=== PATIENT | female | born 1985 | race Caucasian/White ===

== ENCOUNTER 2018-03-06 21:55 | Emergency (ER) | payer BC, OTHER ==
[~2018-03-06] VITALS: Ht 165.1 cm; Wt 117.9 kg
[2018-03-06] MEDS ORDERED: AMOX-358 PO (22:18)
--- NOTE | 2018-03-06 22:18 | ED EENT ---
History of Present Illness General Chief Complaint: Ear Problems Stated Complaint: EAR PAIN;BODY ACHES Nursing Triage Note: right ear pain, headache, body aches that began at 0630. Afebrile. Source: patient, other Exam Limitations: no limitations History of Present Illness Date Seen by Provider: Mar 06, 2018 Time Seen by Provider: 22:06 Initial Comments The patient presents to the ER by private conveyance with a chief complaint that the last day or 2 she started having pain on the right ear and right side of her face and a nodule under her right jaw on the neck. She's not had any drainage from her ear or nose or fevers or nausea or vomiting, diarrhea chest pain or shortness of breath. Allergies and Home Medications Patient Home Medication List Home Medication List Reviewed: Yes Review of Systems Constitutional: No chills, No fever; malaise, other (body aches) Eyes: Denies Blindness, Denies Blurred Vision, Denies Drainage Ears: Denies Dizziness; Pain (right); Denies Tinnitus, Denies Bloody Discharge , Denies Clear Discharge, Denies Purulent Discharge, Denies Serosanguinous Discharge, Denies Previous Injury Nose: denies clots, denies congestion, denies epistaxis Mouth: denies clots, denies loose teeth, denies pain; other (pulse upper's but no lowers) Throat: denies pain, denies swelling, denies discharge, denies neck stiffness, denies hoarse, denies aphonia, denies muffled Respiratory: No cough, No short of breath Cardiovascular: No chest pain, No edema Gastrointestinal: No abdominal pain, No constipation, No nausea Past Rumcwhg-Uujula-Ejtjwx Hx Patient Social History Alcohol Use: Denies Use Recreational Drug Use: No Smoking Status: Current Everyday Smoker Type Used: Cigarettes 2nd Hand Smoke Exposure: No Recent Foreign Travel: No Contact w/Someone Who Travel: No Recent Infectious Disease Expo: No Recent Hopitalizations: No Physical Abuse: No Sexual Abuse: No Mistreated: No Fear: No Immunizations Up To Date Tetanus Booster (TDap): Less than 5yrs Seasonal Allergies Seasonal Allergies: No Past Medical History Surgeries: No Respiratory: No Cardiac: No Neurological: Yes Neuropathy Last Menstrual Period: Mar 02, 2018 Genitourinary: No Gastrointestinal: No Musculoskeletal: Yes Chronic Back Pain Endocrine: No HEENT: No Cancer: No Psychosocial: Yes Depression Nursing Suicide Risk Score: 1 Integumentary: No Physical Exam Vital Signs Vital Signs - First Documented 03/06/18 22:00 Temp 97.7 Pulse 93 Resp 18 B/P (MAP) 135/95 (108) Pulse Ox 100 O2 Delivery Room Air General Appearance: WD/WN, no apparent distress Eyes: bilateral eye normal inspection, bilateral eye PERRL, bilateral eye EOMI Ears: right ear tenderness, right ear TM dull, right ear other (mucoid effusion ); left ear TM normal; bilateral ear auricle normal, bilateral ear canal normal Nose: normal inspection, discharge Mouth/Throat: normal mouth inspection, pharynx normal Neck: lymphadenopathy (R) (1 cm tender, rubbery, mobile, nodule consistent with lymph node in the anterior cervical chain and other shotty lymphadenopathy noted.) Cardiovascular: normal peripheral pulses, regular rate, rhythm Respiratory: no respiratory distress, no accessory muscle use Progress/Results/Core Measures Vital Signs/I&O 03/06/18 22:00 Temp 97.7 Pulse 93 Resp 18 B/P (MAP) 135/95 (108) Pulse Ox 100 O2 Delivery Room Air Blood Pressure Mean: 108 Departure Impression Primary Impression: Otitis media Qualified Codes: H65.01 - Acute serous otitis media, right ear Disposition: HOME, SELF-CARE Condition: Stable Departure-Patient Inst. Decision time for Depature: 22:16 Referrals: NO,LOCAL PHYSICIAN (PCP) Primary Care Physician Patient Instructions: Ear Infections (Otitis Media) (DC) Add. Discharge Instructions: Your infection does not appear to be bacterial at this time. burning supervisor fluticasone /Flonase at the pharmacy and apply 1 spray to each nostril twice a day for the next 2 weeks. Should see some improvement over the next 3 or 4 days. However if it gets worse or you develop fevers then you should go to the pharmacy and berry picker the antibiotics and take one tablet twice a day for a week. Drink plenty of fluids and use 1000 mg of Tylenol every 8 hours and/or 800 mg of ibuprofen every 8 hours as needed for pain. You can also use heating pads on the neck for the aches as well as a humidifier or vapor rubs such as Vicks or Mentholatum. All discharge instructions reviewed with patient and/or family. Voiced understanding. Scripts Amoxicillin/Potassium Clav (Augmentin 875-125 Tablet) 1 Each Tablet 1 EACH PO BID for 7 Days, #14 TAB 0 Refills Prov: BELLO FIELDS 03/06/18 BELLO FIELDS Mar 06, 2018 22:18
[2018-03-06 22:28] VITALS: BP 119/69
[2018-03-10] MEDS ORDERED: NF-CIPDEC (21:39)
[2018-03-10] MEDS ORDERED: AMOX1TAB12 (21:39)
[2018-03-10] MEDS ORDERED: METH4TAB PO (22:34)
[2018-03-10] MEDS ORDERED: CEFD300C3 PO (22:34)
== END 2018-03-06 22:28 | disposition home or self-care (01) ==
LOC: ER 21:58
DX: H66.91 Otitis media, unspecified, right ear (principal); F32.9 Major depressive disorder, single episode, unspecified; F17.210 Nicotine dependence, cigarettes, uncomplicated
CPT/HCPCS: 99282

== ENCOUNTER 2019-12-03 15:09 | Emergency (ER) | payer BC ==
[~2019-12-03] VITALS: Ht 165.1 cm; Wt 118.3 kg
[~2019-12-03 15:09] MED LIST: AMOX-358 PO; AMOX1TAB12; CEFD300C3 PO; METH4TAB PO; NF-CIPDEC
--- NOTE | 2019-12-03 15:32 | ED Lower Extremity ---
General Chief Complaint: Lower Extremity Stated Complaint: LEFT LEG PAIN Nursing Triage Note: NON INJURY LEFT LEG PAIN X2 DAYS. Nursing Sepsis Screen: No Definite Risk Source: patient Exam Limitations: no limitations History of Present Illness Date Seen by Provider: Dec 03, 2019 Time Seen by Provider: 15:28 Initial Comments Left Anterior thigh pain 2 days no injury. He is no chills she is on gabapentin for sciatica. States they're not helping. Onset: just prior to arrival Severity: moderate Pain/Injury Location: left hip, left thigh Method of Injury: unknown Modifying Factors: Worse With Movement Allergies and Home Medications Allergies Coded Allergies: No Known Drug Allergies (Unverified , 03/10/18) Patient Home Medication List Home Medication List Reviewed: Yes Review of Systems Constitutional: see HPI Respiratory: no symptoms reported Cardiovascular: no symptoms reported Genitourinary: no symptoms reported Musculoskeletal: see HPI Skin: no symptoms reported Psychiatric/Neurological: No Symptoms Reported Past Amjxuop-Dneoks-Gadqcc Hx Patient Social History Alcohol Use: Denies Use Recreational Drug Use: No Smoking Status: Current Everyday Smoker Type Used: Cigarettes 2nd Hand Smoke Exposure: No Recent Foreign Travel: No Contact w/Someone Who Travel: No Recent Infectious Disease Expo: No Recent Hopitalizations: No Immunizations Up To Date Tetanus Booster (TDap): Less than 5yrs Seasonal Allergies Seasonal Allergies: No Past Medical History Surgeries: No Respiratory: No Cardiac: No Neurological: Yes Neuropathy Genitourinary: No Gastrointestinal: No Musculoskeletal: Yes Chronic Back Pain Endocrine: No HEENT: No Cancer: No Psychosocial: Yes Depression Integumentary: No Physical Exam Vital Signs Vital Signs - First Documented 12/03/19 15:15 Temp 36.9 Pulse 100 Resp 16 B/P (MAP) 109/74 (86) Pulse Ox 98 O2 Delivery Room Air Capillary Refill : Less Than 3 Seconds Height, Weight, BMI Height: 5'5.00" Weight: 261lbs. oz. 118.917290sf; 43.00 BMI Method:Stated General Appearance: WD/WN, no apparent distress HEENT: PERRL/EOMI, normal ENT inspection Neck: non-tender, full range of motion Respiratory: no respiratory distress, no accessory muscle use Hips: bilateral hip normal inspection, bilateral hip normal range of motion; left hip pain, left hip soft tissue tenderness, left hip other (the pain is the left anterior groin down to the knee does not extend distally beyond that. +2 in strength dorsalis pedis pulse bilaterally, both lower external use one to the touch. Positive straight leg raise test on the left.) Legs: bilateral leg non-tender, bilateral leg normal inspection, bilateral leg normal range of motion Knees: bilateral knee non-tender, bilateral knee normal inspection, bilateral knee normal range of motion Ankles: bilateral ankle non-tender, bilateral ankle normal inspection, bilateral ankle normal range of motion Feet: bilateral foot non-tender, bilateral foot normal inspection, bilateral foot normal range of motion Neurologic/Psychiatric: alert, normal mood/affect Skin: normal color, warm/dry Progress/Results/Core Measures Results/Orders My Orders Orders - LIZET HAILE APRN Hip, Left, 2 Views (12/03/19 15:27) Vital Signs/I&O 12/03/19 15:15 Temp 36.9 Pulse 100 Resp 16 B/P (MAP) 109/74 (86) Pulse Ox 98 O2 Delivery Room Air Blood Pressure Mean: 86 Departure Impression Primary Impression: Sciatic leg pain Disposition: 01 HOME, SELF-CARE Condition: Stable Departure-Patient Inst. Decision time for Depature: 15:31 Referrals: NO,LOCAL PHYSICIAN (PCP/Family) Primary Care Physician Patient Instructions: Sciatica Add. Discharge Instructions: 1. Return to ER for any concerns 2. Follow-up with your doctor next week 3. All discharge instructions reviewed with patient and/or family. Voiced understanding. Scripts Methocarbamol (Robaxin-750) 750 Mg Tablet 750 MG PO Q4H PRN for PAIN-SEVERE (8-10), #20 TAB Prov: LIZET HAILE APRN 12/03/19 Naproxen (Naprosyn) 500 Mg Tablet 500 MG PO BID PRN for PAIN-MODERATE (5-7), #20 TAB 0 Refills Prov: LIZET HAILE APRN 12/03/19 Prednisone (Prednisone) 20 Mg Tab 40 MG PO DAILY, #8 TAB 0 Refills Prov: LIZET HAILE APRN 12/03/19 LIZET HAILE APRN Dec 03, 2019 15:32
[2019-12-03] MEDS ORDERED: PRD20T PO (15:34)
[2019-12-03] MEDS ORDERED: NAPR-1071 PO (15:34)
[2019-12-03] MEDS ORDERED: METH-313 PO (15:34)
--- NOTE | 2019-12-03 15:57 | Diagnostic Imaging Report ---
INDICATION: Left hip pain. AP and oblique views of the left hip are obtained. FINDINGS: No fracture or acute bony abnormality is seen. Left hip joint space appears unremarkable. There is no lytic or blastic lesion. IMPRESSION: Negative left hip. Dictated by: Dictated on workstation # [id number]
[2019-12-03 16:03] VITALS: BP 109/74
== END 2019-12-03 16:03 | disposition home or self-care (01) ==
LOC: EDUNIT# 15:09 → ER 15:10
DX: M54.32 Sciatica, left side (principal); F32.9 Major depressive disorder, single episode, unspecified; G62.9 Polyneuropathy, unspecified; F17.210 Nicotine dependence, cigarettes, uncomplicated
CPT/HCPCS: 73502; 84703

== ENCOUNTER 2021-04-19 19:48 | Emergency (ER) | payer BC ==
[~2021-04-19] VITALS: Ht 165.1 cm; Wt 127.3 kg
[~2021-04-19 19:48] MED LIST changes: +METH-313 PO; +NAPR-1071 PO; +PRD20T PO
[2021-04-19 19:56] VITALS: BP 157/90
--- NOTE | 2021-04-19 20:13 | ED Cough/URI ---
General Chief Complaint: Cough/Cold/Flu Symptoms Stated Complaint: FEVER,N/V,FATIGUE, BODY ACHES Source: patient Exam Limitations: no limitations History of Present Illness Date Seen by Provider: Apr 19, 2021 Time Seen by Provider: 20:12 Initial Comments To ER by private vehicle with reports of a headache, cough, she soiled in her pants [place] her family members grave. She is subsequently has had several episodes of diarrhea. No abdominal pain. She stopped all of her psych meds 3 weeks ago which included Seroquel, gabapentin, tramadol because she did not feel like they were helping. Timing/Duration: yesterday Severity/Quality: moderate Associated Symptoms: cough Allergies and Home Medications Allergies Coded Allergies: No Known Drug Allergies (Unverified , 03/10/18) Home Medications Methocarbamol 750 Mg Tablet, 750 MG PO Q4H PRN for PAIN-SEVERE (8-10) Prescribed by: LIZET HAILE on 12/03/19 1534 Naproxen 500 Mg Tablet, 500 MG PO BID PRN for PAIN-MODERATE (5-7) Prescribed by: LIZET HAILE on 12/03/19 1534 Prednisone 20 Mg Tab, 40 MG PO DAILY Prescribed by: LIZET HAILE on 12/03/19 1534 Patient Home Medication List Home Medication List Reviewed: Yes Review of Systems Review of Systems Constitutional: see HPI; No chills, No fever EENTM: see HPI Respiratory: no symptoms reported Cardiovascular: no symptoms reported Gastrointestinal: diarrhea Genitourinary: no symptoms reported Musculoskeletal: no symptoms reported Skin: no symptoms reported Psychiatric/Neurological: No Symptoms Reported Hematologic/Lymphatic: No Symptoms Reported Immunological/Allergic: no symptoms reported Past Gfkgzck-Plehhj-Tgeunk Hx Patient Social History Type Used: Cigarettes 2nd Hand Smoke Exposure: No Recent Hopitalizations: No Immunizations Up To Date Tetanus Booster (TDap): Less than 5yrs Seasonal Allergies Seasonal Allergies: No Past Medical History Surgeries: No Respiratory: No Cardiac: No Neurological: Yes Neuropathy Genitourinary: No Gastrointestinal: No Musculoskeletal: Yes Chronic Back Pain Endocrine: No HEENT: No Cancer: No Psychosocial: Yes Depression Integumentary: No Physical Exam Capillary Refill : Height: 5'5.00" Weight: 261lbs. oz. 118.630010sc; 43.00 BMI Method:Stated General Appearance: WD/WN, no apparent distress Eyes: Bilateral Eye Normal Inspection, Bilateral Eye PERRL, Bilateral Eye EOMI HEENT: PERRL/EOMI, normal ENT inspection Neck: non-tender, full range of motion Progress/Results/Core Measures Suspected Sepsis SIRS Temperature: Pulse: Respiratory Rate: Laboratory Tests 04/19/21 20:05: White Blood Count 10.6 Blood Pressure / Mean: Laboratory Tests 04/19/21 20:05: Creatinine 0.92, Platelet Count 238, Total Bilirubin 0.2 Results/Orders Lab Results Laboratory Tests Test 04/19/21 20:05 Range/Units White Blood Count 10.6 4.3-11.0 10^3/uL Red Blood Count 5.02 3.80-5.11 10^6/uL Hemoglobin 15.0 11.5-16.0 g/dL Hematocrit 46 35-52 % Mean Corpuscular Volume 91 80-99 fL Mean Corpuscular Hemoglobin 30 25-34 pg Mean Corpuscular Hemoglobin Concent 33 32-36 g/dL Red Cell Distribution Width 14.3 10.0-14.5 % Platelet Count 238 130-400 10^3/uL Mean Platelet Volume 11.9 9.0-12.2 fL Immature Granulocyte % (Auto) 0 % Neutrophils (%) (Auto) 56 42-75 % Lymphocytes (%) (Auto) 36 12-44 % Monocytes (%) (Auto) 5 0-12 % Eosinophils (%) (Auto) 3 0-10 % Basophils (%) (Auto) 0 0-10 % Neutrophils # (Auto) 5.9 1.8-7.8 10^3/uL Lymphocytes # (Auto) 3.8 1.0-4.0 10^3/uL Monocytes # (Auto) 0.5 0.0-1.0 10^3/uL Eosinophils # (Auto) 0.3 0.0-0.3 10^3/uL Basophils # (Auto) 0.0 0.0-0.1 10^3/uL Immature Granulocyte # (Auto) 0.0 0.0-0.1 10^3/uL Urine Color CARLOS ENRIQUE H Urine Clarity SL CLOUDY Urine pH 6.0 5-9 Urine Specific [place] 1.010 L 1.016-1.022 Urine Protein NEGATIVE NEGATIVE Urine Glucose (UA) NEGATIVE NEGATIVE Urine Ketones NEGATIVE NEGATIVE Urine Nitrite NEGATIVE NEGATIVE Urine Bilirubin NEGATIVE NEGATIVE Urine Urobilinogen 0.2 < = 1.0 MG/DL Urine Leukocyte Esterase TRACE H NEGATIVE Urine RBC (Auto) 3+ H NEGATIVE Urine RBC >100 H /HPF Urine WBC 0-2 /HPF Urine Squamous Epithelial Cells 2-5 /HPF Urine Crystals NONE /LPF Urine Bacteria TRACE /HPF Urine Casts NONE /LPF Urine Mucus NEGATIVE /LPF Urine Culture Indicated NO Urine Test NEGATIVE NEGATIVE Sodium Level 138 135-145 MMOL/L Potassium Level 3.6 3.6-5.0 MMOL/L Chloride Level 102 98-107 MMOL/L Carbon Dioxide Level 25 21-32 MMOL/L Anion Gap 11 5-14 MMOL/L Blood Urea Nitrogen 8 7-18 MG/DL Creatinine 0.92 0.60-1.30 MG/DL Estimat Glomerular Filtration Rate > 60 BUN/Creatinine Ratio 9 Glucose Level 171 H 70-105 MG/DL Calcium Level 9.2 8.5-10.1 MG/DL Corrected Calcium 9.0 8.5-10.1 MG/DL Total Bilirubin 0.2 0.1-1.0 MG/DL Aspartate Amino Transf (AST/SGOT) 18 5-34 U/L Alanine Aminotransferase (ALT/SGPT) 14 0-55 U/L Alkaline Phosphatase 46 40-136 U/L Total Protein 7.3 6.4-8.2 GM/DL Albumin 4.2 3.2-4.5 GM/DL Influenza Type A (RT-PCR) Not Detected Not Detecte Influenza Type B (RT-PCR) Not Detected Not Detecte SARS-CoV-2 RNA (RT-PCR) Not Detected Not Detecte My Orders Orders - LIZET HAILE APRN Covid 19 Inhouse Test (04/19/21 19:49) Influenza A And B By Pcr (04/19/21 19:49) Ua Culture If Indicated (04/19/21 19:49) Hcg,Qualitative Urine (04/19/21 19:49) Cbc With Automated Diff (04/19/21 20:11) Comprehensive Metabolic Panel (04/19/21 20:11) Ed Iv/Invasive Line Start (04/19/21 20:11) Vital Signs/I&O Capillary Refill : Departure Communication (Admissions) Hematuria noted, She is on her period. Impression Primary Impression: Viral syndrome Disposition: 01 HOME, SELF-CARE Condition: Stable Departure-Patient Inst. Decision time for Depature: 20:46 Referrals: NO,LOCAL PHYSICIAN (PCP/Family) Primary Care Physician Patient Instructions: Viral Syndrome (DC) LIZET HAILE SUPERVISING LAW ENFORCEMENT ANALYST Apr 19, 2021 20:13
[2021-04-19 20:19] LABS: BILIRUBIN,URINE NEGATIVE (NEGATIVE); CLARITY,URINE SL CLOUDY; GLUCOSE, URINE (UA) NEGATIVE (NEGATIVE); KETONES,URINE NEGATIVE (NEGATIVE); LEUKOCYTE ESTERASE ,URINE TRACE (NEGATIVE); NITRITE,URINE NEGATIVE (NEGATIVE); PROTEIN,URINE NEGATIVE (NEGATIVE)
[2021-04-19 20:20] LABS: BASOPHILS % (AUTO) 0 % (0-10); EOSINOPHILS # (AUTO) 0.3 10^3/uL (0.0-0.3); EOSINOPHILS % (AUTO) 3 % (0-10); HEMATOCRIT 46 % (35-52); LYMPHOCYTES # (AUTO) 3.8 10^3/uL (1.0-4.0); LYMPHOCYTES % (AUTO) 36 % (12-44); MEAN CORPUSCULAR HEMOGLOBIN 30 pg (25-34); MEAN CORPUSCULAR HGB CONC 33 g/dL (32-36); MEAN CORPUSCULAR VOLUME 91 fL (80-99); MEAN PLATELET VOLUME 11.9 fL (9.0-12.2); MONOCYTES # (AUTO) 0.5 10^3/uL (0.0-1.0); MONOCYTES % (AUTO) 5 % (0-12); NEUTROPHILS # (AUTO) 5.9 10^3/uL (1.8-7.8); NEUTROPHILS % (AUTO) 56 % (42-75); PLATELET COUNT 238 10^3/uL (130-400); WHITE BLOOD COUNT 10.6 10^3/uL (4.3-11.0)
[2021-04-19 20:21] LABS: COLOR,URINE AMBER
[2021-04-19 20:27] LABS: BACTERIA,URINE TRACE /HPF; RBC,URINE >100 /HPF; WBC,URINE 0-2 /HPF
[2021-04-19 20:41] LABS: ALANINE AMINOTRANSFERASE 14 U/L (0-55); ALBUMIN 4.2 GM/DL (3.2-4.5); ALKALINE PHOSPHATASE 46 U/L (40-136); BILIRUBIN,TOTAL 0.2 MG/DL (0.1-1.0); BUN/CREATININE RATIO 9; CALCIUM 9.2 MG/DL (8.5-10.1); CARBON DIOXIDE 25 MMOL/L (21-32); CHLORIDE 102 MMOL/L (98-107); CREATININE SERUM 0.92 MG/DL (0.60-1.30); GFR ESTIMATED > 60; GLUCOSE 171 MG/DL (70-105); POTASSIUM 3.6 MMOL/L (3.6-5.0); SODIUM 138 MMOL/L (135-145); TOTAL PROTEIN 7.3 GM/DL (6.4-8.2)
== END 2021-04-19 20:56 | disposition home or self-care (01) ==
LOC: EDUNIT# 19:48 → ER 19:49
DX: B34.9 Viral infection, unspecified (principal); G89.29 Other chronic pain; M54.9 Dorsalgia, unspecified; Z79.1 Long term (current) use of non-steroidal anti-inflammatories (NSAID)
CPT/HCPCS: 36415; 80053; 81000; 84703; 85025; 87636